=== PATIENT | male | born 2005 | race African-American/Black ===

== ENCOUNTER 2024-10-29 05:41 | Emergency (ER) | payer SELFPAY ==
[2024-10-29] MEDS ORDERED: Acetaminophen 325 MG TAB ONE (06:16)
[2024-10-29] MEDS ORDERED: Azithromycin 500 MG VIAL ONE (06:59)
[2024-10-29] MEDS ORDERED: cefTRIAXone (ROCEPHIN) 500 MG VIAL ONE (06:59)
[2024-10-29] MEDS ORDERED: Azithromycin 250 MG TAB ONE ×2 (07:00→07:01)
[2024-10-29 07:09] LABS: CAUTI Indications for Culture Dysuria,urgency,freq; Glucose, Urine (Dipstick) Normal (Negative); Leukocyte 500 Leu/uL (Negative); Protein, Urine (Dipstick) 10 mg/dL (Neg-Trace); RBC/HPF 0-3 HPF (0-3); Specific Gravity, Urine 1.016 (1.002-1.036); WBC/HPF Greater than 50 HPF (0-3)
[2024-10-29 07:10] LABS: Bacteria/HPF 1+ HPF (None Seen)
[2024-10-29 07:11] LABS: Urine Culture Reflex Yes Yes
== END 2024-10-29 07:25 | disposition home or self-care (01) ==
LOC: ERS 05:41
DX: Z20.2 Contact with and (suspected) exposure to infections with a predominantly sexual mode of transmission (principal)
CPT/HCPCS: 81001; 87086; 87491; 87591; 96372; 99283; J0456; J0696